=== PATIENT | male | born 1990 | race American Indian/Alaskan Native ===

== ENCOUNTER 2020-02-29 22:58 | Emergency (ER) | payer MEDICAID ==
[2020-02-29] MEDS ORDERED: ACETAMINOPHEN 325 MG/10.15 ML ORAL LIQD UNIT DOSE PO ONE (23:34)
[2020-02-29] MEDS ORDERED: ALPRAZolam 0.5 MG TAB PO ONE (23:34)
[2020-02-29] MEDS ORDERED: METOPROLOL TARTRATE 50 MG TAB PO ONE (23:34)
--- NOTE | 2020-02-29 23:35 | Emergency Department Report ---
ED General Adult HPI - General Chief complaint: Psych Stated complaint: PSYCH PUI?: Yes Time Seen by Provider: 02/29/20 23:17 Source: patient, family, EMS ( EMS documentation not available at time of chart dictation ), RN notes reviewed Mode of arrival: Ambulatory Limitations: No Limitations, Other (Patient developmentally delayed.) - History of Present Illness Initial comments: This is a 29-year-old gentleman who is not known to myself previously, has a history of obesity, hypertension, developmental delay, who was brought to the emergency room by his family for evaluation of resolved aggressive behavior. Patient was at home, and apparently threw a television on the floor. In the emergency room, the patient denies physical pain. He indicates he is not homicidal or suicidal. He indicates that he does not want to overdose. He indicates he would like to go home. His family indicates that he was with his grandmother earlier on this week, and return home today. He is accompanied by his brother as well, who indicates that they occasionally left the grandmother's home, with facial protection, to go food shopping. Today, the patient reportedly ate his food "really fast", and threw up once or twice. There is no complaint of headache, neck pain, chest pain, abdominal pain, shortness of breath, testicular pain, or urinary symptoms. The patient is very anxious, but he is able to be calmed down. He indicates he is not nauseous at this time. Please note that for the entire history and physical examination, I had on complete personal protective equipment. -: Sudden Consistency: other (Patient does not describe consistency, exacerbating or relieving factors.) - Related Data Home Medications Medication Instructions Recorded Confirmed Last Taken Divalproex ER [DepaKOTE ER] 1,500 mg PO QHS 02/29/20 02/29/20 Unknown Levothyroxine [Synthroid] 50 mcg PO QAM 02/29/20 02/29/20 Unknown Lurasidone HCl [Latuda] 120 mg PO QPM 02/29/20 02/29/20 Unknown Metoprolol Xl [Metoprolol 50 mg PO QDAY 02/29/20 02/29/20 Unknown SUCCINATE ER TAB] Valsartan/Hydrochlorothiazide 1 each PO QAM 02/29/20 02/29/20 Unknown [Valsartan-Hctz 320-12.5 mg Tab] cloNIDine [Catapres] 0.1 mg PO QAM 02/29/20 02/29/20 Unknown cloNIDine [Catapres] 0.2 mg PO QHS 02/29/20 02/29/20 Unknown glipiZIDE XL [Glucotrol Xl] 5 mg PO QAM 02/29/20 02/29/20 Unknown metFORMIN [Glucophage] 500 mg PO QDAY 02/29/20 02/29/20 Unknown Allergies Allergy/AdvReac Type Severity Reaction Status Date / Time Sulfa (Sulfonamide Allergy Unknown Verified 02/29/20 23:04 Antibiotics) ED Review of Systems ROS: Stated complaint: PSYCH Other details as noted in HPI Constitutional: denies: fever Eyes: denies: eye discharge ENT: denies: congestion Respiratory: denies: cough Gastrointestinal: nausea, vomiting Genitourinary: as per HPI Musculoskeletal: as per HPI Skin: as per HPI Neurological: as per HPI Psychiatric: anxiety. denies: homicidal thoughts, suicidal thoughts ED Past Medical Hx - Past Medical History Previous Medical History?: Yes Hx Psychiatric Treatment: Yes (ADHD, Bipolar) - Surgical History Past Surgical History?: No - Social History Smoking Status: Never Smoker - Medications Home Medications: Home Medications Medication Instructions Recorded Confirmed Last Taken Type Divalproex ER [DepaKOTE ER] 1,500 mg PO QHS 02/29/20 02/29/20 Unknown History Levothyroxine [Synthroid] 50 mcg PO QAM 02/29/20 02/29/20 Unknown History Lurasidone HCl [Latuda] 120 mg PO QPM 02/29/20 02/29/20 Unknown History Metoprolol Xl [Metoprolol 50 mg PO QDAY 02/29/20 02/29/20 Unknown History SUCCINATE ER TAB] Valsartan/Hydrochlorothiazide 1 each PO QAM 02/29/20 02/29/20 Unknown History [Valsartan-Hctz 320-12.5 mg Tab] cloNIDine [Catapres] 0.1 mg PO QAM 02/29/20 02/29/20 Unknown History cloNIDine [Catapres] 0.2 mg PO QHS 02/29/20 02/29/20 Unknown History glipiZIDE XL [Glucotrol Xl] 5 mg PO QAM 02/29/20 02/29/20 Unknown History metFORMIN [Glucophage] 500 mg PO QDAY 02/29/20 02/29/20 Unknown History ED Physical Exam - General Limitations: Other (Developmental delay) General appearance: anxious, obese - Head Head exam: Present: atraumatic, normocephalic - Eye Eye exam: Present: normal appearance, EOMI. Absent: nystagmus - ENT ENT exam: Present: normal exam, normal orophraynx, mucous membranes moist, normal external ear exam - Neck Neck exam: Present: normal inspection, full ROM. Absent: tenderness - Respiratory Respiratory exam: Present: decreased breath sounds. Absent: respiratory distress, wheezes, rales, rhonchi, stridor, chest wall tenderness, accessory mu scle use, prolonged expiratory - Cardiovascular Cardiovascular Exam: Present: normal rhythm, tachycardia, normal heart sounds. Absent: systolic murmur, diastolic murmur, rubs, gallop - GI/Abdominal GI/Abdominal exam: Present: soft, normal bowel sounds. Absent: distended, tenderness, guarding, rebound, rigid, pulsatile mass - exam: Present: normal inspection, other (Chaperoned by nurse Eugenie Trujillo) External exam: Present: normal external exam - Extremities Exam Extremities exam: Present: normal inspection, full ROM, other (2+ pulses noted in the bilateral upper and lower extremities. There is no palpable cord. negative Homans sign. Muscular compartments are soft. The pelvis is stable.). Absent: pedal edema, calf tenderness - Back Exam Back exam: Present: normal inspection, full ROM. Absent: tenderness, CVA tenderness (R), CVA tenderness (L), paraspinal tenderness, vertebral tenderness - Neurological Exam Neurological exam: Present: alert, normal gait, other (No facial droop. Tongue midline. Extraocular movements intact bilaterally. Facial sensation intact to light touch in V1, V2, V3 distribution bilaterally. 5 and a 5 strength in 4 extremities. Sensation intact to light touch in 4 extremities.). Absent: motor sensory deficit - Psychiatric Psychiatric exam: Present: anxious. Absent: homicidal ideation, suicidal ideation - Skin Skin exam: Present: warm, dry, intact, normal color. Absent: rash ED Course Vital Signs 02/29/20 03/01/20 03/01/20 23:34 00:12 00:40 Temperature 99.2 F 99.2 F Pulse Rate 112 H 112 H 96 H Respiratory 18 22 Rate Blood Pressure 155/105 Blood Pressure 155/105 149/98 [Right] O2 Sat by Pulse 97 96 Oximetry - Reevaluation(s) Reevaluation #1: 03/01/20 00:42 03/01/20 00:43 No active vomiting. Tolerated oral feeds. Tachycardia resolved. Lead pressure improved. Contacted patient's mother, discussed significance of findings, and return precautions. She verbalized understanding. She is in agreement with the plan of care. She will follow-up with outpatient primary care doctor, and she endorses that he has 2 therapists/caseworkers for his behavioral issues. ED Medical Decision Making - Radiology Data Radiology results: report reviewed, image reviewed X-ray of the chest is negative for acute disease. Poor inspiratory effort is noted. Atelectatic changes noted. - Medical Decision Making Vital Signs 02/29/20 23:34 Temperature 99.2 F Pulse Rate 112 H Respiratory 18 Rate Blood Pressure 155/105 [Right] O2 Sat by Pulse 97 Oximetry Differential diagnosis, including but not limited to: Developmental delay, viral syndrome, medical clearance Assessment and plan: 29-year-old gentleman who is anxious, but not violent, agitated, or combative, who is not homicidal or suicidal, who has a history of intellectual/developmental delay and disability, who was brought to the hospital by EMS primarily because he threw a TV down at the parents home. He does not meet criteria for 1013 at this time. Apparently, as per verbal report from nursing team, they had a face time evaluation by their outpatient doctor within the past 48 hours. We have requested that nursing team reconcile patient's medications. He is on metoprolol, along with a number of other medicines. His family endorses that they did do not suspect intentional overdose or suicidality. In addition, the patient states he is not homicidal or suicidal. Because he had low-grade temperature, and tachycardia, and x-ray of the chest was obtained, and was fairly unremarkable. He was given oral medications here, without difficulty, and did not vomit. His tachycardia improved. He has chronic hypertension as per family. His family endorse that he eats his food too fast occasionally, and subsequently has issues with throwing up. However, his abdomen was soft and benign in the emergency room, and he did not throw up while he was here. He does not meet criteria for hospitalization or medical admission at this time. He will need to follow-up with an outpatient primary care doctor to be further evaluated for potential COVID. He can follow-up with his outpatient therapist for his developmental delay. Critical care attestation.: If time is entered above; I have spent that time in minutes in the direct care of this critically ill patient, excluding procedure time. ED Disposition Clinical Impression: History of developmental delay, General medical exam Disposition: DC- TO HOME OR SELFCARE Is pt being admited?: No Does the pt Need Aspirin: No Condition: Stable Additional Instructions: Continue current outpatient medications. Wash hands frequently, and often, with gentle soap and water. Please follow-up with your outpatient primary care doctor within the next 3 to 5 days. Please follow-up with your outpatient psychiatrist or therapist or psychologist within the next 3 to 5 days. Do not touch hands to face, eyes, mouth. It is possible, but unlikely that the patient has or was exposed to coronavirus. The patient will need to follow-up with his outpatient primary care doctor for further evaluation. Please return to the emergency room right away with projectile vomiting, change in mental status, confusion, inability to tolerate liquid feeds, intractable nausea or vomiting, homicidality, suicidality, or new, worsened or different symptoms not present on the initial emergency room evaluation. Referrals: JO BARNHART MD [Staff Physician] - 3-5 Days [facility] [Provider Group] - 3-5 Days
--- NOTE | 2020-03-01 00:01 | XRay Report ---
CHEST 1 VIEW INDICATION: n/v low grade temp. COMPARISON: None FINDINGS: Support devices: None. Heart: Within normal limits. Lungs/Pleura: Suboptimal inspiratory effort with minimal basilar atelectasis bilaterally. Additional findings: None. IMPRESSION: 1. Pulmonary findings as above. Signer Name: Pedro Whitt MD Signed: 02/29/2020 11:57 PM Workstation Name: [id number]
== END 2020-03-01 01:14 | disposition home or self-care (01) ==
LOC: ED 22:58
DX: R45.6 Violent behavior (principal); F31.9 Bipolar disorder, unspecified; F90.9 Attention-deficit hyperactivity disorder, unspecified type; I10 Essential (primary) hypertension; E66.9 Obesity, unspecified; Z88.2 Allergy status to sulfonamides; Z68.34 Body mass index [BMI] 34.0-34.9, adult; Z79.899 Other long term (current) drug therapy; Z87.898 Personal history of other specified conditions; Z00.00 Encounter for general adult medical examination without abnormal findings
CPT/HCPCS: 71045; 82962